=== PATIENT | male | born 1945 | race Caucasian/White ===

== ENCOUNTER 2022-07-16 18:56 | Inpatient (IN) | payer OTHER ==
[2022-07-16 19:19] VITALS: RESP 18
[2022-07-16 20:47] LABS: BASO % 0.2 % (0-2.0); EOS % 0.1 % (0-4.5); HEMATOCRIT 46.5 % (35.4-49); HEMOGLOBIN 15.4 GM/dL (11.7-16.9); LYMPH % 4.1 % (8-40); MCH 30.9 pg (25.7-33.7); MCHC 33.1 g/dl (32.0-35.9); MEAN CELL VOLUME 93.4 fl (80-96); MEAN PLT VOLUME 8.5 fl (7.5-11.1); MONO % 9.9 % (3.8-10.2); NEUT % 85.7 % (42.8-82.8); PLATELET COUNT 154 10^3/uL (134-434); RBC 4.98 M/mm3 (4.00-5.60); RDW 14.2 % (11.9-15.9); WHITE BLOOD COUNT 7.2 K/mm3 (4.0-10.0)
[2022-07-16 20:54] LABS: INR 1.15 (0.83-1.09); PROTHROMBIN TIME (PATIENT) 13.3 SEC (9.7-13.0)
[2022-07-16 20:56] LABS: ACTIVATED PTT 28.4 SECONDS (25.2-36.5)
[2022-07-16] MEDS ORDERED: ACETAMINOPHEN 325 MG TABLET (FP) PO PRN (21:06)
[2022-07-16 21:07] LABS: ALBUMIN 3.6 g/dl (3.4-5.0); BLOOD UREA NITROGEN 17.1 mg/dL (7-18)
[2022-07-16 21:10] LABS: CREATININE 1.1 mg/dL (0.55-1.3)
[2022-07-16 21:12] LABS: BILIRUBIN,TOTAL 0.7 mg/dL (0.2-1); TOT PROT 7.2 g/dl (6.4-8.2)
[2022-07-16] MEDS ORDERED: ATORVASTATIN CA 10 MG TABLET (FP) PO SCH (22:04)
[2022-07-16] MEDS: PANTOPRAZOLE 40 MG TABLET PO SCH (23:37)
[2022-07-17 03:06] VITALS: BMI 22.2
[2022-07-17] MEDS: INSULIN SLIDING SCALE (NOVOLOG) 1 VIAL SQ SCH ×2 (06:11→17:58)
[2022-07-17 08:22] LABS: BASO % 0.6 % (0-2.0); EOS % 0.3 % (0-4.5); HEMATOCRIT 43.5 % (35.4-49); HEMOGLOBIN 14.3 GM/dL (11.7-16.9); LYMPH % 14.4 % (8-40); MCH 30.7 pg (25.7-33.7); MCHC 32.8 g/dl (32.0-35.9); MEAN CELL VOLUME 93.5 fl (80-96); MONO % 16.4 % (3.8-10.2); NEUT % 68.3 % (42.8-82.8); PLATELET COUNT 147 10^3/uL (134-434); RBC 4.65 M/mm3 (4.00-5.60); RDW 14.5 % (11.9-15.9)
[2022-07-17 08:37] LABS: EPI CELLS 1 /uL (0-25.1); HYALINE CASTS 0 /uL (0-3.1); PH,URINE 5.5 (5.0-8.0); URINE APPEARANCE CLEAR; URINE BACTERIA 2 /uL (0-1359); URINE BILIRUBIN NEGATIVE (NEGATIVE); URINE COLOR YELLOW; URINE GLUCOSE (UA) NEGATIVE (NEGATIVE); URINE KETONE NEGATIVE (NEGATIVE); URINE LEUK ESTERASE NEGATIVE (NEGATIVE); URINE NITRITE NEGATIVE (NEGATIVE); URINE PROTEIN 2+ (NEGATIVE); URINE RBC 36 /uL (0-23.9); URINE UROBILINOGEN 0.2 mg/dL (0.2-1.0); URINE WBC 2 /uL (0-25.8)
[2022-07-17] MEDS: PANTOPRAZOLE 40 MG TABLET PO SCH (10:13)
[2022-07-17] MEDS: HEPARIN NA (PORCINE) 5,000 UNITS/ML 1ML VIAL SQ SCH ×3 (10:13→21:21)
[2022-07-17] MEDS: metoPROLOL SUCCINATE 25 MG TAB.SR.24H (FP) PO SCH (18:00)
[2022-07-17] MEDS ORDERED: ATORVASTATIN CA 10 MG TABLET (FP) PO SCH (22:00)
[2022-07-18] MEDS: HEPARIN NA (PORCINE) 5,000 UNITS/ML 1ML VIAL SQ SCH ×2 (05:57→13:22)
[2022-07-18] MEDS: INSULIN SLIDING SCALE (NOVOLOG) 1 VIAL SQ SCH ×2 (06:01→16:16)
[2022-07-18 09:34] VITALS: PULSE 89; TEMP 98.8
[2022-07-18] MEDS: PANTOPRAZOLE 40 MG TABLET PO SCH (09:36)
[2022-07-18] MEDS: metoPROLOL SUCCINATE 25 MG TAB.SR.24H (FP) PO SCH (09:36)
[2022-07-18 12:48] VITALS: BP 130/79
[2022-07-18] MEDS ORDERED: metoPROLOL SUCCINATE 25 MG TAB.SR.24H (FP) PO SCH (18:15)
== END 2022-07-18 17:51 | disposition home or self-care (01) | DRG 556 ==
LOC: JER 18:56 → JERBED 20:02 → J4W 23:21
PROVIDERS: ADMIT Internal Medicine; ATTEND Internal Medicine
DX: M62.81 Muscle weakness (generalized) (principal); I50.1 Left ventricular failure, unspecified; G20 Parkinson's disease; I25.118 Atherosclerotic heart disease of native coronary artery with other forms of angina pectoris; R26.81 Unsteadiness on feet; F03.90 Unspecified dementia, unspecified severity, without behavioral disturbance, psychotic disturbance, mood disturbance, and anxiety; I11.0 Hypertensive heart disease with heart failure; E11.9 Type 2 diabetes mellitus without complications; E78.5 Hyperlipidemia, unspecified; E78.00 Pure hypercholesterolemia, unspecified; D72.828 Other elevated white blood cell count
CPT/HCPCS: 0241U-QW; 36415; 70450-TC; 71045-TC-FY; 72125-TC; 72170-TC-FY; 73502-TC-LT-FY; 73502-TC-RT-FY; 80053; 81003; 82607; 82962; 83036; 83735; 84484; 85025; 85610; 85730; 87086; 93005; 93010; 93880-TC; 93971-TC; 99285-25; J1644

== ENCOUNTER 2022-07-23 08:05 | Inpatient (IN) | payer OTHER ==
[2022-07-23 09:40] LABS: HEMATOCRIT 43.7 % (35.4-49); HEMOGLOBIN 14.5 GM/dL (11.7-16.9); MCH 30.7 pg (25.7-33.7); MCHC 33.2 g/dl (32.0-35.9); MEAN CELL VOLUME 92.6 fl (80-96); PLATELET COUNT 130 10^3/uL (134-434); RBC 4.72 M/mm3 (4.00-5.60); RDW 14.2 % (11.9-15.9); WHITE BLOOD COUNT 13.2 K/mm3 (4.0-10.0)
[2022-07-23 09:52] LABS: CALCIUM 8.9 mg/dL (8.5-10.1)
[2022-07-23 09:53] LABS: ALBUMIN 3.2 g/dl (3.4-5.0); BLOOD UREA NITROGEN 14.9 mg/dL (7-18)
[2022-07-23 09:56] LABS: CREATININE 1.2 mg/dL (0.55-1.3)
[2022-07-23 09:57] LABS: BILIRUBIN,TOTAL 1.2 mg/dL (0.2-1); TOT PROT 6.7 g/dl (6.4-8.2)
[2022-07-23] MEDS ORDERED: ASPIRIN 81 MG CHEWABLE TABLETS PO ONE (11:27)
[2022-07-23] MEDS ORDERED: ASPIRIN 81 MG CHEWABLE TABLETS ONE (11:35)
[2022-07-23 12:17] LABS: EPI CELLS 11 /uL (0-25.1); HYALINE CASTS 2 /uL (0-3.1); PH,URINE 5.5 (5.0-8.0); URINE APPEARANCE CLEAR; URINE BACTERIA 6 /uL (0-1359); URINE BILIRUBIN NEGATIVE (NEGATIVE); URINE COLOR YELLOW; URINE GLUCOSE (UA) 1+ (NEGATIVE); URINE KETONE 1+ (NEGATIVE); URINE LEUK ESTERASE NEGATIVE (NEGATIVE); URINE NITRITE NEGATIVE (NEGATIVE); URINE PROTEIN 2+ (NEGATIVE); URINE RBC 70 /uL (0-23.9); URINE WBC 10 /uL (0-25.8)
[2022-07-23] MEDS ORDERED: PANTOPRAZOLE 40 MG TABLET PO ONE (13:16)
[2022-07-23] MEDS: PANTOPRAZOLE 40 MG TABLET PO SCH (13:26)
[2022-07-23] MEDS: D5-1/2NS+10 MEQ KCL - 10 MEQ/1,000 ML INFUS.BAG IV SCH (15:37)
[2022-07-23 15:52] VITALS: BMI 21.2
[2022-07-23] MEDS: INSULIN SLIDING SCALE (NOVOLOG) 1 VIAL SQ SCH (17:27)
[2022-07-23] MEDS: ATORVASTATIN CA 10 MG TABLET (FP) PO SCH (21:54)
[2022-07-24] MEDS: INSULIN SLIDING SCALE (NOVOLOG) 1 VIAL SQ SCH ×2 (06:40→17:19)
[2022-07-24] MEDS: PANTOPRAZOLE 40 MG TABLET PO SCH (09:27)
[2022-07-24] MEDS: ENOXAPARIN NA (PORCINE) 40 MG/0.4 ML DISP.SYRIN SQ SCH (11:05)
[2022-07-24] MEDS: D5-1/2NS+10 MEQ KCL - 10 MEQ/1,000 ML INFUS.BAG IV SCH (17:21)
[2022-07-24] MEDS: ATORVASTATIN CA 10 MG TABLET (FP) PO SCH (21:36)
[2022-07-25] MEDS: D5-1/2NS+10 MEQ KCL - 10 MEQ/1,000 ML INFUS.BAG IV SCH ×2 (05:12→17:47)
[2022-07-25] MEDS: INSULIN SLIDING SCALE (NOVOLOG) 1 VIAL SQ SCH ×2 (06:21→17:46)
[2022-07-25 08:45] LABS: BASO % 0.3 % (0-2.0); HEMATOCRIT 45.5 % (35.4-49); HEMOGLOBIN 14.8 GM/dL (11.7-16.9); LYMPH % 13.6 % (8-40); MCH 30.3 pg (25.7-33.7); MCHC 32.6 g/dl (32.0-35.9); MEAN CELL VOLUME 93.1 fl (80-96); MEAN PLT VOLUME 9.4 fl (7.5-11.1); MONO % 11.5 % (3.8-10.2); NEUT % 71.6 % (42.8-82.8); PLATELET COUNT 130 10^3/uL (134-434); RBC 4.89 M/mm3 (4.00-5.60); RDW 14.4 % (11.9-15.9); WHITE BLOOD COUNT 10.4 K/mm3 (4.0-10.0)
[2022-07-25 08:53] LABS: CALCIUM 8.9 mg/dL (8.5-10.1)
[2022-07-25 08:54] LABS: BLOOD UREA NITROGEN 9.2 mg/dL (7-18)
[2022-07-25 08:57] LABS: CREATININE 1.1 mg/dL (0.55-1.3)
[2022-07-25] MEDS: ENOXAPARIN NA (PORCINE) 40 MG/0.4 ML DISP.SYRIN SQ SCH (09:41)
[2022-07-25] MEDS: PANTOPRAZOLE 40 MG TABLET PO SCH (09:41)
[2022-07-25] MEDS: ATORVASTATIN CA 10 MG TABLET (FP) PO SCH (21:36)
[2022-07-26] MEDS: INSULIN SLIDING SCALE (NOVOLOG) 1 VIAL SQ SCH ×2 (06:24→17:12)
[2022-07-26] MEDS ORDERED: D5-1/2NS+10 MEQ KCL - 10 MEQ/1,000 ML INFUS.BAG IV SCH (06:51)
[2022-07-26] MEDS: PANTOPRAZOLE 40 MG TABLET PO SCH (09:47)
[2022-07-26] MEDS: ENOXAPARIN NA (PORCINE) 40 MG/0.4 ML DISP.SYRIN SQ SCH (09:47)
[2022-07-26] MEDS: ATORVASTATIN CA 10 MG TABLET (FP) PO SCH (22:10)
[2022-07-27] MEDS: INSULIN SLIDING SCALE (NOVOLOG) 1 VIAL SQ SCH ×2 (06:46→17:06)
[2022-07-27] MEDS: PANTOPRAZOLE 40 MG TABLET PO SCH (09:28)
[2022-07-27] MEDS: ENOXAPARIN NA (PORCINE) 40 MG/0.4 ML DISP.SYRIN SQ SCH (09:28)
[2022-07-27] MEDS ORDERED: REGADENOSON 0.4 MG/5 ML PRE-FILLED SYRINGE IVPUSH ONE ×2 (13:04→13:45)
[2022-07-27] MEDS: ATORVASTATIN CA 10 MG TABLET (FP) PO SCH (22:21)
[2022-07-28 05:32] VITALS: RESP 18
[2022-07-28] MEDS: INSULIN SLIDING SCALE (NOVOLOG) 1 VIAL SQ SCH (06:02)
[2022-07-28] MEDS: PANTOPRAZOLE 40 MG TABLET PO SCH (11:22)
[2022-07-28] MEDS: ENOXAPARIN NA (PORCINE) 40 MG/0.4 ML DISP.SYRIN SQ SCH (11:22)
[2022-07-28 15:10] VITALS: BP 140/86; PULSE 97; TEMP 98.7
== END 2022-07-28 15:20 | DRG 312 ==
LOC: JER 08:05 → JERBED 10:38 → OBSVTOIN 12:16 → J4W 15:44
PROVIDERS: ADMIT Internal Medicine; ATTEND Internal Medicine
DX: R55 Syncope and collapse (principal); I24.8 Other forms of acute ischemic heart disease; G20 Parkinson's disease; I10 Essential (primary) hypertension; E78.5 Hyperlipidemia, unspecified; E11.9 Type 2 diabetes mellitus without complications; F03.90 Unspecified dementia, unspecified severity, without behavioral disturbance, psychotic disturbance, mood disturbance, and anxiety; D72.829 Elevated white blood cell count, unspecified; D69.6 Thrombocytopenia, unspecified; R31.29 Other microscopic hematuria
CPT/HCPCS: 0241U-QW; 36415; 70450-TC; 71045-TC-FY; 72125-TC; 72170-TC-FY; 73521-TC-FY; 78452-TC; 80048; 80053; 80061; 81003; 82962; 83880; 84443; 84484; 85025; 85027; 87086; 93005; 93010; 93017; 93306-TC; 97116-GP; 97162-GP; 99285-25; A9502; G0378; J2785

== ENCOUNTER 2022-08-20 02:12 | Inpatient (IN) | payer OTHER ==
[2022-08-20] MEDS ORDERED: NOREPINEPHRINE BITARTRATE/D5W 8 MG/250 ML BAG IVPB ONE (02:24)
[2022-08-20 02:26] VITALS: BMI 28.7
[2022-08-20] MEDS ORDERED: EPINEPHrine 1:10,000 (P-F SYR) 1 MG/10 ML DISP.SYRIN ONE (02:31)
[2022-08-20] MEDS ORDERED: MAGNESIUM SULFATE IN WATER 2 GM/50 ML IVPB IVPB ONE (02:32)
[2022-08-20] MEDS ORDERED: AMIODARONE HCL 150 MG/3 ML VIAL ONE (02:34)
[2022-08-20] MEDS ORDERED: CALCIUM CHLORIDE 1 GM/10 ML *DISP.SYRIN ONE ×2 (02:38→02:47)
[2022-08-20] MEDS ORDERED: VASOPRESSIN 20 UNITS/ML VIAL IV ONE ×2 (02:54→02:55)
[2022-08-20 03:25] LABS: INR 1.25 (0.83-1.09); PROTHROMBIN TIME (PATIENT) 14.4 SEC (9.7-13.0)
[2022-08-20 03:28] LABS: ACTIVATED PTT 41.6 SECONDS (25.2-36.5)
[2022-08-20 03:35] LABS: CHLORIDE 110 mmol/L (98-107); SODIUM 147 mmol/L (136-145)
[2022-08-20 03:38] LABS: ALBUMIN 2.2 g/dl (3.4-5.0); ANION GAP 25 MMOL/L (8-16); CALCIUM 7.6 mg/dL (8.5-10.1); CO2 12 mmol/L (21-32); MAGNESIUM 2.3 mg/dL (1.8-2.4)
[2022-08-20 03:41] LABS: CREATININE 1.6 mg/dL (0.55-1.3); SGOT/AST 69 U/L (15-37); SGPT/ALT 60 U/L (13-61)
[2022-08-20 03:43] LABS: BILIRUBIN,TOTAL 0.4 mg/dL (0.2-1); MCH 30.3 pg (25.7-33.7); MCHC 30.7 g/dl (32.0-35.9); MEAN CELL VOLUME 98.7 fl (80-96); PLATELET COUNT 80 10^3/uL (134-434); RBC 3.65 M/mm3 (4.00-5.60); RDW 15.2 % (11.9-15.9); WHITE BLOOD COUNT 12.7 K/mm3 (4.0-10.0)
[2022-08-20 03:45] LABS: ALK PHOS 90 U/L (45-117)
[2022-08-20 03:49] LABS: ARTERIAL BLD GAS O2 SATURATION 99.1 % (95-98); ARTERIAL BLOOD GAS PO2 297.9 mmHg (80-100)
[2022-08-20 03:49] LABS: GLUCOSE,RANDOM 556 mg/dL (74-106); LACTIC ACID > 15.0 mmol/L (0.4-2.0)
[2022-08-20 04:23] LABS: N-TERMINAL BNP 152.9 pg/ml (5-450)
[2022-08-20 04:27] LABS: ARTERIAL BLOOD GAS pH 6.819 (7.350-7.450)
[2022-08-20] MEDS ORDERED: AMIODARONE HCL INJECTION 150 MG in DEXTROSE 5%-WATER - 100 ML IVPB ONE (04:43)
[2022-08-20] MEDS ORDERED: SODIUM CHLORIDE 0.9% 500 ML INFUS.BAG IV ONE (04:43)
[2022-08-20] MEDS ORDERED: NOREPINEPHRINE BITARTRATE 4,000 MCG in DEXTROSE 5%-WATER - 496 ML IV SCH (04:45)
[2022-08-20] MEDS ORDERED: VASOPRESSIN 40 UNITS/100 ML BAG IV SCH (04:45)
[2022-08-20 04:50] LABS: LACTIC ACID 19.6 mmol/L (0.4-2.0)
[2022-08-20 05:50] VITALS: PULSE 98
[2022-08-20] MEDS ORDERED: HEPARIN NA (PORCINE) 5,000 UNITS/ML 1ML VIAL SQ SCH (06:00)
[2022-08-20 06:34] LABS: ARTERIAL BLD GAS O2 SATURATION 99.6 % (95-98); ARTERIAL BLOOD GAS BASE EXCESS -17.6 mmol/L (-2-2); ARTERIAL BLOOD GAS PO2 358.2 mmHg (80-100)
[2022-08-20 06:43] VITALS: BP 89/51
[2022-08-20 06:48] LABS: ANISOCYTOSIS 2+; MACROCYTOSIS 0; TEAR DROP CELLS 1+
[2022-08-20] MEDS ORDERED: SODIUM BICARBONATE 4.2% 5 MEQ/10 ML DISP.SYRIN IVPUSH ONE (06:58)
[2022-08-20] MEDS ORDERED: morphine SULFATE 4 MG/ML VIAL IVPUSH ONE (07:48)
[2022-08-20] MEDS ORDERED: morphine SULFATE 4 MG/ML VIAL ONE (08:31)
[2022-08-20 08:49] VITALS: RESP 18
[2022-08-20] MEDS ORDERED: MUPIROCIN 2% TOPICAL OINTMENT FOR DECOLONIZATION NS SCH (10:00)
[2022-08-20] MEDS ORDERED: PANTOPRAZOLE SODIUM 40 MG VIAL IVPUSH SCH (10:00)
[2022-08-20] MEDS ORDERED: CHLORHEXIDINE GLUCONATE 4% CLEANSER FOR DECOLONIZATION TP SCH (22:00)
== END 2022-08-20 09:08 | disposition expired | DRG 296 ==
LOC: JER 02:12 → JERBED 03:21
PROVIDERS: ADMIT Internal Medicine Pulmonary Disease; ATTEND Internal Medicine Pulmonary Disease
PROC: 5A12012 Performance of Cardiac Output, Single, Manual (ICD-10-PCS; principal; 2022-08-20)
PROC: 06HN33Z Insertion of Infusion Device into Left Femoral Vein, Percutaneous Approach (ICD-10-PCS; 2022-08-20)
PROC: 0BH17EZ Insertion of Endotracheal Airway into Trachea, Via Natural or Artificial Opening (ICD-10-PCS; 2022-08-20)
PROC: 5A1935Z Respiratory Ventilation, Less than 24 Consecutive Hours (ICD-10-PCS; 2022-08-20)
DX: I46.9 Cardiac arrest, cause unspecified (principal); J96.90 Respiratory failure, unspecified, unspecified whether with hypoxia or hypercapnia; R57.9 Shock, unspecified; I49.01 Ventricular fibrillation; I10 Essential (primary) hypertension; E78.5 Hyperlipidemia, unspecified; R00.0 Tachycardia, unspecified; G20 Parkinson's disease; E11.9 Type 2 diabetes mellitus without complications; F03.90 Unspecified dementia, unspecified severity, without behavioral disturbance, psychotic disturbance, mood disturbance, and anxiety; S05.12XA Contusion of eyeball and orbital tissues, left eye, initial encounter; S00.83XA Contusion of other part of head, initial encounter; W18.30XA Fall on same level, unspecified, initial encounter; Y92.098 Other place in other non-institutional residence as the place of occurrence of the external cause
CPT/HCPCS: 36415; 36600; 71045-TC-FY; 80053; 80061; 82550; 82803; 82962; 83605; 83735; 83880; 84484; 85025; 85610; 85730; 86850; 86900; 86901; 87040; 99285-25; J1250; J3490